=== PATIENT | female | born 1995 | race Caucasian/White ===

== ENCOUNTER 2018-05-29 06:41 | Day surgery (SDC) | payer OTHER ==
[2018-05-29] MEDS ORDERED: PHENYLephrine (100 MCG/ML) 10ML SYG (07:00)
[2018-05-29] MEDS ORDERED: DESFLURANE 15 MIN (07:00)
[2018-05-29] MEDS ORDERED: MEPERIDINE 25 MG INJ IV (09:30)
[2018-05-29] MEDS ORDERED: ALBUTEROL 0.083% (NEB) 2.5 MG/3 ML AMP HHN (09:30)
[2018-05-29] MEDS ORDERED: HYDROmorphONE 1 MG/5 ML IV SYRINGE IV ×2 (09:30)
[2018-05-29] MEDS ORDERED: METOCLOPRAMIDE 10 MG INJ IV (09:30)
[2018-05-29] MEDS ORDERED: FENTAnyl 50 MCG/ML VIAL IV ×2 (09:30)
[2018-05-29] MEDS ORDERED: LIDOCAINE 100 MG SYRINGE (09:37)
[2018-05-29] MEDS ORDERED: FENTAnyl 50 MCG/ML VIAL (09:37)
[2018-05-29] MEDS ORDERED: PROPOFOL 20 ML (09:37)
[2018-05-29] MEDS ORDERED: SUCCINYLCHOLINE CHLORIDE 100 MG/5 ML SYG IV (09:37)
[2018-05-29] MEDS ORDERED: CEFAZOLIN 1 GM INJ (09:37)
[2018-05-29] MEDS ORDERED: BACITRACIN/POLYMYXIN 28.35 GM OINT TOP (09:51)
[2018-05-29] MEDS ORDERED: SUGAMMADEX SODIUM 200 MG/2 ML VIAL IV (09:53)
[2018-05-29] MEDS ORDERED: EPINEPHrine 0.1 MG/ML SYG (10:14)
[2018-05-29] MEDS ORDERED: DEXAMETHASONE 4 MG/ML 1 ML INJ (10:18)
[2018-05-29] MEDS: DIPHENHYDRAMINE 50 MG INJ IV (10:26)
[2018-05-29] MEDS: HYDROmorphONE 1 MG/5 ML IV SYRINGE IV (10:38)
[2018-05-29] MEDS: ONDANSETRON 4 MG INJ IV (10:39)
[2018-05-29] MEDS: DEXAMETHASONE 10 MG/ML 1 ML INJ IV (10:39)
[2018-05-29] MEDS ORDERED: BACITRACIN 0.9 GM OINT TOP (13:00)
[2018-05-29] MEDS ORDERED: HYDROCODONE/APAP (5/325) TAB GTB (13:00)
[2018-05-29] MEDS: ACETAMINOPHEN 325 MG TAB PO (13:07)
== END 2018-05-29 15:02 | disposition home or self-care (01) ==
LOC: SDS 06:41
DX: N84.3 Polyp of vulva (principal)
CPT/HCPCS: 11426; 84702; 84703; 86850; 86900; 86901; 88304; 93005